=== PATIENT | female | born 1995 | race Caucasian/White ===

== ENCOUNTER 2020-11-07 10:20 | Inpatient (IN) ==
[2020-11-07 14:22] LABS: Adenovirus Not Detected (Not Detect); Bordetella Pertussis Not Detected (Not Detect); Chlamydophila pneumoniae Not Detected (Not Detect); Coronavirus 229E Not Detected (Not Detect); Coronavirus HKU1 Not Detected (Not Detect); Coronavirus NL63 Not Detected (Not Detect); Coronavirus OC43 Not Detected (Not Detect); Human Metapneumovirus Not Detected (Not Detect); Human Rhinovirus/Enterovirus Not Detected (Not Detect); Influenza A Subtype 2009 H1 Not Detected (Not Detect); Influenza B Not Detected (Not Detect); Mycoplasma pneumoniae Not Detected (Not Detect); Parainfluenza Virus 1 Not Detected (Not Detect); Parainfluenza Virus 2 Not Detected (Not Detect); Parainfluenza Virus 3 Not Detected (Not Detect); Parainfluenza Virus 4 Not Detected (Not Detect); Respiratory Syncytial Virus Not Detected (Not Detect); SARS-CoV-2 Not Detected (Not Detect)
[2020-11-07] MEDS ORDERED: *HR* LORazepam 2 MG/ML VIAL IM PRN (15:21)
[2020-11-07] MEDS ORDERED: *HR* LORazepam 1 MG TABLET PO PRN (15:21)
[2020-11-07] MEDS ORDERED: Haloperidol Lactate 5 MG/ML VIAL IM PRN (15:21)
[2020-11-07] MEDS ORDERED: Mag Hydrox/Al Hydrox/Simeth 30 ML UDC PO PRN (15:21)
[2020-11-07] MEDS ORDERED: haloperidoL 5 MG TABLET PO PRN (15:21)
[2020-11-07] MEDS ORDERED: Nicotine 2 MG GUM BC PRN (15:21)
[2020-11-07] MEDS ORDERED: MOM Conc 10 ML UD.LIQ PO PRN (15:21)
[2020-11-08] MEDS: Nicotine 21 MG PATCH.TD24 TD SCH (11:01)
[2020-11-08] MEDS: ARIPiprazole 10 MG TABLET PO SCH (11:44)
[2020-11-08] MEDS: ARIPiprazole 5 MG TABLET PO SCH (11:44)
[2020-11-08] MEDS: hydrOXYzine pamoate 25 MG CAPSULE PO PRN (18:27)
[2020-11-09] MEDS: ARIPiprazole 10 MG TABLET PO SCH (09:53)
[2020-11-09] MEDS: ARIPiprazole 5 MG TABLET PO SCH (09:53)
[2020-11-09] MEDS: Nicotine 21 MG PATCH.TD24 TD SCH (09:53)
[2020-11-09] MEDS: hydrOXYzine pamoate 25 MG CAPSULE PO PRN ×2 (12:06→17:50)
[2020-11-09] MEDS: traZODone 50 MG TABLET PO PRN (20:48)
[2020-11-10] MEDS: ARIPiprazole 5 MG TABLET PO SCH (09:16)
[2020-11-10] MEDS: ARIPiprazole 10 MG TABLET PO SCH (09:17)
[2020-11-10] MEDS: Nicotine 21 MG PATCH.TD24 TD SCH (09:17)
[2020-11-10] MEDS: hydrOXYzine pamoate 25 MG CAPSULE PO PRN ×2 (11:56→17:36)
[2020-11-10] MEDS: traZODone 50 MG TABLET PO PRN (20:55)
[2020-11-11] MEDS: Nicotine 21 MG PATCH.TD24 TD SCH (09:40)
[2020-11-11] MEDS: ARIPiprazole 5 MG TABLET PO SCH (09:41)
[2020-11-11] MEDS: ARIPiprazole 10 MG TABLET PO SCH (09:41)
[2020-11-11] MEDS ORDERED: Acetaminophen 325 MG TABLET PO PRN (18:53)
[2020-11-11] MEDS: traZODone 50 MG TABLET PO PRN (20:43)
[2020-11-11 22:53] VITALS: TEMP 97.9
[2020-11-12] MEDS: Nicotine 21 MG PATCH.TD24 TD SCH (09:25)
[2020-11-12] MEDS: ARIPiprazole 10 MG TABLET PO SCH (09:26)
[2020-11-12] MEDS: ARIPiprazole 5 MG TABLET PO SCH (09:37)
[2020-11-12 10:01] VITALS: BP 124/76; PULSE 104; O2SAT 97
== END 2020-11-12 16:55 | disposition home or self-care (01) | DRG 753 ==
LOC: EMEROOARM 10:20 → 1ANU 14:28
PROVIDERS: ADMIT Psychiatry & Neurology Forensic Psychiatry; ATTEND Psychiatry & Neurology Forensic Psychiatry